=== PATIENT | male | born 1960 | race Caucasian/White ===

== ENCOUNTER 2021-10-29 12:50 | Emergency (ER) | payer BC, MEDICAID, OTHER ==
[~2021-10-29] VITALS: Ht 170.2 cm; Wt 86.4 kg
[2021-10-29 13:16] LABS: BASOPHILS # (AUTO) 0.1 X10'3 (0-0.2); BASOPHILS % (AUTO) 0.7 % (0-1); EOSINOPHILS # (AUTO) 0.1 X10'3 (0-0.9); EOSINOPHILS % (AUTO) 0.8 % (0-6); HEMATOCRIT 43.4 % (42.0-52.0); HEMOGLOBIN 14.8 g/dl (14.0-17.9); LYMPHOCYTES # (AUTO) 4.2 X10'3 (1.1-4.8); LYMPHOCYTES % (AUTO) 38.4 % (21-51); MEAN CORPUSCULAR HEMOGLOBIN 32.4 PG (27.0-31.0); MEAN CORPUSCULAR VOLUME 95.2 FL (78-98); MEAN PLATELET VOLUME 7.7 FL (7.4-10.4); MONOCYTES % (AUTO) 9.2 % (2-12); NEUTROPHILS # (AUTO) 5.5 X10'3 (1.8-7.7); NEUTROPHILS % (AUTO) 50.9 % (42-75); PLATELET COUNT 290 X10'3 (140-440); RED BLOOD COUNT 4.56 X10'6 (4.70-6.10); RED CELL DISTRIBUTION WIDTH 13.5 % (11.5-14.5); WHITE BLOOD COUNT 10.8 X10'3 (4.5-11.0)
[2021-10-29 13:30] LABS: ALANINE AMINOTRANSFERASE 55 U/L (12-78); ALKALINE PHOSPHATASE 92 IU/L (46-116); ANION GAP 11 (8-16); ASPARTATE AMINO TRANSFERASE 53 U/L (10-37); BILIRUBIN,TOTAL 0.6 MG/DL (0.1-1.0); BLOOD UREA NITROGEN 13 MG/DL (7-18); BUN/CREATININE RATIO 15.9 (5.4-32.0); CALCIUM 9.8 MG/DL (8.5-10.1); CHLORIDE 104 MMOL/L (99-107); CREATININE 0.82 MG/DL (0.60-1.10); GLUCOSE 126 MG/DL (70-104); LIPASE 212 U/L (73-393); POTASSIUM 3.5 MMOL/L (3.5-5.1); SODIUM 140 MMOL/L (135-145); TOTAL CARBON DIOXIDE 24.6 MMOL/L (24-32); eGFR > 90 ML/MIN
[2021-10-29 15:43] LABS: CLARITY,URINE SLIGHTLY CLOUDY (Clear); COLOR,URINE YELLOW (Yellow); GLUCOSE, URINE NEGATIVE (Neg); KETONES,URINE NEGATIVE (Neg); LEUKOCYTE ESTERASE ,URINE NEGATIVE (Neg); NITRITES, URINE NEGATIVE (Neg); OCCULT BLOOD,URINE NEGATIVE (Neg); PH,URINE 7.5 (4.8-8.0); PROTEIN,URINE NEGATIVE (Neg); UA COLLECTION TYPE CLN CATCH MIDSTREAM; UROBILINOGEN,URINE 0.2 E.U/dL (0.2-1.0)
[2021-10-29 15:48] LABS: AMORPHOUS URATES 3+; BACTERIA,URINE FEW /HPF (Neg); RBC,URINE NONE SEEN /HPF (0-2); SQUAMOUS EPITHELIAL CELL,UR NONE SEEN /LPF (FEW); WBC,URINE NONE SEEN /HPF (0-4)
--- NOTE | 2021-10-29 16:25 | NUR ---
Pt's blood pressure elevated at 188/106, RICARDO Ga made aware.
[2021-10-29 16:29] VITALS: BP 188/106
== END 2021-10-29 16:31 | disposition home or self-care (01) ==
LOC: ER 12:51
DX: F41.9 Anxiety disorder, unspecified (principal); R42 Dizziness and giddiness; R68.83 Chills (without fever); Z90.89 Acquired absence of other organs; Z98.890 Other specified postprocedural states; Z72.89 Other problems related to lifestyle
CPT/HCPCS: 36415; 80053; 81001; 83690; 85025; 99283

== ENCOUNTER 2021-11-22 13:37 | Inpatient (IN) | payer BC ==
[~2021-11-22] VITALS: Ht 170.2 cm; Wt 88.6 kg
[2021-11-22 14:13] LABS: CLARITY,URINE CLEAR (Clear); COLOR,URINE YELLOW (Yellow); GLUCOSE, URINE NEGATIVE (Neg); KETONES,URINE 15 mg/dl (Neg); LEUKOCYTE ESTERASE ,URINE NEGATIVE (Neg); NITRITES, URINE NEGATIVE (Neg); OCCULT BLOOD,URINE NEGATIVE (Neg); PROTEIN,URINE NEGATIVE (Neg); UROBILINOGEN,URINE 0.2 E.U/dL (0.2-1.0)
[2021-11-22 14:14] LABS: UA COLLECTION TYPE VOIDED
[2021-11-22 14:38] LABS: BASOPHILS % (AUTO) 0.5 % (0-1); EOSINOPHILS # (AUTO) 0.2 X10'3 (0-0.9); EOSINOPHILS % (AUTO) 2.2 % (0-6); HEMATOCRIT 44.5 % (42.0-52.0); HEMOGLOBIN 15.7 g/dl (14.0-17.9); LYMPHOCYTES # (AUTO) 3.6 X10'3 (1.1-4.8); MEAN CORPUSCULAR HEMOGLOBIN 33.9 PG (27.0-31.0); MEAN CORPUSCULAR HGB CONC 35.2 g/dL (33.0-36.5); MEAN CORPUSCULAR VOLUME 96.3 FL (78-98); MEAN PLATELET VOLUME 8.1 FL (7.4-10.4); MONOCYTES # (AUTO) 0.9 X10'3 (0-0.9); MONOCYTES % (AUTO) 8.8 % (2-12); NEUTROPHILS # (AUTO) 5.5 X10'3 (1.8-7.7); NEUTROPHILS % (AUTO) 53.5 % (42-75); PLATELET COUNT 292 X10'3 (140-440); RED BLOOD COUNT 4.62 X10'6 (4.70-6.10); RED CELL DISTRIBUTION WIDTH 13.2 % (11.5-14.5); WHITE BLOOD COUNT 10.2 X10'3 (4.5-11.0)
[2021-11-22 14:52] LABS: ALANINE AMINOTRANSFERASE 35 U/L (12-78); ALBUMIN 4.1 G/DL (3.4-5.0); ALBUMIN/GLOBULIN RATIO 1.1 (1.1-1.5); ALKALINE PHOSPHATASE 83 IU/L (46-116); ANION GAP 8 (8-16); ASPARTATE AMINO TRANSFERASE 30 U/L (10-37); BILIRUBIN,TOTAL 0.5 MG/DL (0.1-1.0); BLOOD UREA NITROGEN 18 MG/DL (7-18); BUN/CREATININE RATIO 23.7 (5.4-32.0); CALCIUM 9.1 MG/DL (8.5-10.1); CHLORIDE 101 MMOL/L (99-107); CREATININE 0.76 MG/DL (0.60-1.10); GLUCOSE 124 MG/DL (70-104); POTASSIUM 3.8 MMOL/L (3.5-5.1); SODIUM 136 MMOL/L (135-145); eGFR > 90 ML/MIN
[2021-11-22 15:00] LABS: LIPASE 206 U/L (73-393)
[2021-11-22] MEDS ORDERED: aspirin 81mg tab.chew PO ONE (17:00)
[2021-11-22] MEDS ORDERED: hydrALAZINE 20mg/ml inj. IV ONE (17:00)
[2021-11-22] MEDS ORDERED: LORazepam 2 mg/ml vial IV ONE (17:20)
[2021-11-22] MEDS ORDERED: magnesium 2GM in 50ml NS 50 ML IV PRN (18:10)
[2021-11-22] MEDS ORDERED: aminophylline 250mg/10ml inj. IV PRN (18:10)
[2021-11-22] MEDS ORDERED: nitroGLYCERIN 0.4mg SUBLingual tab SL PRN (18:10)
[2021-11-22] MEDS ORDERED: potassium CL 10mEq/100ml bag 100 ML IV PRN (18:10)
[2021-11-22] MEDS ORDERED: POTASSIUM BICARB 20meq eff tab 20 MEQ TABLET.EFF PO PRN ×2 (18:10)
[2021-11-22] MEDS ORDERED: regadenoson 0.4mg/5ml syringe IV PRN (18:10)
[2021-11-22] MEDS ORDERED: acetaminophen 325mg tablet PO PRN ×2 (18:10)
[2021-11-22] MEDS ORDERED: ondansetron/PF 4mg/2ml inj IV PRN (18:10)
[2021-11-22] MEDS ORDERED: metoprolol tartrate 1mg/ml inj IV PRN (18:10)
[2021-11-22] MEDS ORDERED: magnesium Cl slow-release 64mg tablet PO PRN (18:10)
[2021-11-22] MEDS ORDERED: magnesium 4gm in 100ml NS 100 ML IV PRN (18:10)
[2021-11-22] MEDS ORDERED: LORazepam 1 MG tablet PO PRN (18:15)
[2021-11-22] MEDS ORDERED: LORazepam 2 mg/ml vial IV PRN (18:15)
[2021-11-22] MEDS ORDERED: ROSU10TA2 PO (19:50)
[2021-11-22] MEDS ORDERED: PROP60CA37 PO (19:50)
[2021-11-22] MEDS: amLODIPine 5mg tablet PO SCH (19:53)
[2021-11-22] MEDS: heparin, porcine 5000 units/ml vial SQ SCH (19:54)
[2021-11-22] MEDS: lisinopril 10 MG tablet PO SCH (19:54)
[2021-11-22] MEDS: normal saline 1000ml 1,000 ML IV SCH (19:58)
[2021-11-22] MEDS: K and/or MAG REPLACEMENT MC SCH (20:00)
[2021-11-22] MEDS ORDERED: temazepam 15mg capsule PO PRN (21:00)
[2021-11-22 21:13] VITALS: BP 162/85
[2021-11-22 22:00] VITALS: BP 128/71
[2021-11-23] VITALS (10 sets, daily range): BP systolic 123–158; BP diastolic 56–92
[2021-11-23 06:19] LABS: BASOPHILS # (AUTO) 0.1 X10'3 (0-0.2); BASOPHILS % (AUTO) 0.5 % (0-1); EOSINOPHILS # (AUTO) 0.2 X10'3 (0-0.9); EOSINOPHILS % (AUTO) 2.1 % (0-6); HEMATOCRIT 42.2 % (42.0-52.0); HEMOGLOBIN 14.8 g/dl (14.0-17.9); LYMPHOCYTES % (AUTO) 28.9 % (21-51); MEAN CORPUSCULAR HEMOGLOBIN 33.7 PG (27.0-31.0); MEAN CORPUSCULAR HGB CONC 35.2 g/dL (33.0-36.5); MEAN CORPUSCULAR VOLUME 95.6 FL (78-98); MONOCYTES # (AUTO) 1.1 X10'3 (0-0.9); MONOCYTES % (AUTO) 10.7 % (2-12); NEUTROPHILS % (AUTO) 57.8 % (42-75); PLATELET COUNT 256 X10'3 (140-440); RED BLOOD COUNT 4.41 X10'6 (4.70-6.10); RED CELL DISTRIBUTION WIDTH 13.2 % (11.5-14.5); WHITE BLOOD COUNT 10.3 X10'3 (4.5-11.0)
[2021-11-23 06:45] LABS: ALANINE AMINOTRANSFERASE 30 U/L (12-78); ALBUMIN 3.4 G/DL (3.4-5.0); ALBUMIN/GLOBULIN RATIO 0.9 (1.1-1.5); ALKALINE PHOSPHATASE 60 IU/L (46-116); ANION GAP 8 (8-16); ASPARTATE AMINO TRANSFERASE 25 U/L (10-37); BILIRUBIN,TOTAL 0.7 MG/DL (0.1-1.0); BLOOD UREA NITROGEN 15 MG/DL (7-18); BUN/CREATININE RATIO 22.4 (5.4-32.0); CALCIUM 8.9 MG/DL (8.5-10.1); CHLORIDE 107 MMOL/L (99-107); CHOL/HDL RATIO 3.7 (0.00-4.99); CHOLESTEROL 170 MG/DL (0-200); CREATININE 0.67 MG/DL (0.60-1.10); GLUCOSE 101 MG/DL (70-104); HDL CHOLESTEROL 46 MG/DL (35-60); LDL CHOLESTEROL 95 MG/DL (50-100); POTASSIUM 3.9 MMOL/L (3.5-5.1); SODIUM 140 MMOL/L (135-145); TOTAL CARBON DIOXIDE 24.9 MMOL/L (24-32); TRIGLYCERIDES 217 MG/DL (20-135); eGFR > 90 ML/MIN
[2021-11-23] MEDS: heparin, porcine 5000 units/ml vial SQ SCH (07:18)
[2021-11-23] MEDS: K and/or MAG REPLACEMENT MC SCH (08:00)
--- NOTE | 2021-11-23 08:25 | NUR ---
[employer] per their request.
--- NOTE | 2021-11-23 10:34 | NUR ---
PAGER ID: [phone] MESSAGE: [phone]. Levon Pugh. Pt req Shon for sciatica pain. Nancy Pulido [phone]
[2021-11-23] MEDS ORDERED: HYDROcodone/acetaminophen 5mg/325mg tablet PO ONE (10:55)
[2021-11-23] MEDS: lisinopril 10 MG tablet PO SCH (11:58)
[2021-11-23] MEDS: amLODIPine 5mg tablet PO SCH (11:58)
[2021-11-23] MEDS: normal saline 1000ml 1,000 ML IV SCH (14:10)
--- NOTE | 2021-11-23 14:30 | NUR ---
PT is back in his room. He is having his bring TACO CELAYA. Educated on heart healthy diet - pt verbalized understanding and still wants to eat taco celaya.
--- NOTE | 2021-11-23 17:12 | NUR ---
Paged Dr Hernandez PAGER ID: [phone] MESSAGE: [phone].Levon Pugh. [facility] results are in.Nancy Pulido [phone]
[2021-11-23] MEDS ORDERED: LISI10TA27 PO (17:24)
[2021-11-23] MEDS ORDERED: NOR5T PO (17:24)
--- NOTE | 2021-11-23 17:55 | NUR ---
pt stable for d/c per md order reviewed all d/c ppwk with patient and patient . PIV was removed from right forearm. Pt tolerated well and verbalized understanding. Tele monitor was removed and given to telephone clerk monitor. All personal belongings were sent with patient. New RX was called into [facility] on [facility] per patient request. Education re: stopping smoking, etoh, changing diet to heart healthy. Pt verbalized understanding. Pt wanted to walk out. Private vehicle in parking lot. and patient walked out together.
[2021-11-23] MEDS ORDERED: propranolol LA 60 MG cap.SA.24H PO SCH (21:00)
[2021-11-24] MEDS ORDERED: atorvastatin 20mg tablet PO SCH (08:00)
== END 2021-11-23 17:56 | disposition home or self-care (01) | DRG 305 ==
LOC: ER 13:38 → ED HOLD 18:10 → PCU 3S 20:40
PROVIDERS: ADMIT Internal Medicine; ATTEND Internal Medicine
PROC: 4A02XM4 Measurement of Cardiac Total Activity, External Approach (ICD-10-PCS; principal; 2021-11-23)
PROC: 3E033HZ Introduction of Radioactive Substance into Peripheral Vein, Percutaneous Approach (ICD-10-PCS; 2021-11-23)
DX: I16.0 Hypertensive urgency (principal); E78.00 Pure hypercholesterolemia, unspecified; E78.5 Hyperlipidemia, unspecified; F12.90 Cannabis use, unspecified, uncomplicated; F17.210 Nicotine dependence, cigarettes, uncomplicated; F41.0 Panic disorder [episodic paroxysmal anxiety]; F41.1 Generalized anxiety disorder; I10 Essential (primary) hypertension; Z90.49 Acquired absence of other specified parts of digestive tract; Z79.899 Other long term (current) drug therapy; Z71.6 Tobacco abuse counseling; Z72.89 Other problems related to lifestyle; Z71.41 Alcohol abuse counseling and surveillance of alcoholic
CPT/HCPCS: 36415; 71045; 78452; 80053; 80061; 81003; 83690; 83880; 84484; 85025; 87081; 93017; 93306; 96374; 97161; 97530; 99285; A9500; G0378; J0360; J1644; J2060; J2785; J7030

== ENCOUNTER 2022-02-25 09:43 | Emergency (ER) | payer BC ==
[~2022-02-25] VITALS: Ht 170.2 cm; Wt 190.0 kg
[~2022-02-25 09:43] MED LIST: LISI10TA27 PO; NOR5T PO; PROP60CA37 PO; ROSU10TA2 PO
[2022-02-25 10:12] LABS: BASOPHILS # (AUTO) 0.1 X10'3 (0-0.2); BASOPHILS % (AUTO) 0.6 % (0-1); EOSINOPHILS # (AUTO) 0.2 X10'3 (0-0.9); EOSINOPHILS % (AUTO) 1.9 % (0-6); HEMATOCRIT 44.4 % (42.0-52.0); HEMOGLOBIN 15.3 g/dl (14.0-17.9); LYMPHOCYTES # (AUTO) 3.6 X10'3 (1.1-4.8); LYMPHOCYTES % (AUTO) 32.7 % (21-51); MEAN CORPUSCULAR HEMOGLOBIN 33.4 PG (27.0-31.0); MEAN CORPUSCULAR HGB CONC 34.5 g/dL (33.0-36.5); MEAN CORPUSCULAR VOLUME 96.6 FL (78-98); MEAN PLATELET VOLUME 8.3 FL (7.4-10.4); MONOCYTES # (AUTO) 1.2 X10'3 (0-0.9); MONOCYTES % (AUTO) 10.8 % (2-12); PLATELET COUNT 257 X10'3 (140-440); RED CELL DISTRIBUTION WIDTH 14.1 % (11.5-14.5); WHITE BLOOD COUNT 11.1 X10'3 (4.5-11.0)
[2022-02-25 10:27] LABS: ALANINE AMINOTRANSFERASE 37 U/L (12-78); ALBUMIN 4.3 G/DL (3.4-5.0); ALBUMIN/GLOBULIN RATIO 1.1 (1.1-1.5); ALKALINE PHOSPHATASE 78 IU/L (46-116); ANION GAP 13 (8-16); ASPARTATE AMINO TRANSFERASE 34 U/L (10-37); BILIRUBIN,TOTAL 0.6 MG/DL (0.1-1.0); BLOOD UREA NITROGEN 17 MG/DL (7-18); BUN/CREATININE RATIO 20.2 (5.4-32.0); CALCIUM 9.8 MG/DL (8.5-10.1); CHLORIDE 101 MMOL/L (99-107); CREATININE 0.84 MG/DL (0.60-1.10); GLUCOSE 214 MG/DL (70-104); POTASSIUM 4.2 MMOL/L (3.5-5.1); SODIUM 138 MMOL/L (135-145); TOTAL PROTEIN 8.3 G/DL (6.4-8.2); eGFR > 90 ML/MIN
--- NOTE | 2022-02-25 11:46 | NUR ---
PT STATES THEY HAVE HAD " 3 SHOTS" OF THE COVID VACCINE.
[2022-02-25 13:47] VITALS: BP 150/105
[2022-02-25] MEDS ORDERED: METO25TA6 PO (15:10)
== END 2022-02-25 15:25 | disposition home or self-care (01) ==
LOC: ER 09:45
DX: I48.91 Unspecified atrial fibrillation (principal); R42 Dizziness and giddiness; F41.9 Anxiety disorder, unspecified; I10 Essential (primary) hypertension; R53.1 Weakness
CPT/HCPCS: 36415; 71045; 80053; 83880; 84484; 85025; 93005; 99285

== ENCOUNTER 2024-03-19 08:04 | Inpatient (IN) | payer BC ==
[~2024-03-19] VITALS: Ht 170.2 cm; Wt 90.9 kg
[~2024-03-19 08:04] MED LIST changes: +METO25TA6 PO
[2024-03-19] MEDS: amiodarone/D5 360MG/200ML BAG 200 ML IV SCH (08:30)
[2024-03-19] MEDS: magnesium sulf-water 2g/50mL 50 ML IV ONE ×2 (08:51)
[2024-03-19 08:52] LABS: BASOPHILS # (AUTO) 0.1 X10'3 (0-0.2); LYMPHOCYTES # (AUTO) 9.2 X10'3 (1.1-4.8); PLATELET COUNT 278 X10'3 (140-440)
[2024-03-19 08:54] LABS: BASOPHILS % (AUTO) 0.5 % (0-1); EOSINOPHILS # (AUTO) 0.2 X10'3 (0-0.9); EOSINOPHILS % (AUTO) 1.4 % (0-6); HEMATOCRIT 49.4 % (42.0-52.0); HEMOGLOBIN 16.6 g/dl (14.0-17.9); LYMPHOCYTES % (AUTO) 57.8 % (21-51); MEAN CORPUSCULAR HGB CONC 33.5 g/dL (33.0-36.5); MEAN CORPUSCULAR VOLUME 101.3 FL (78-98); MEAN PLATELET VOLUME 8.3 FL (7.4-10.4); MONOCYTES # (AUTO) 1.4 X10'3 (0-0.9); MONOCYTES % (AUTO) 8.7 % (2-12); NEUTROPHILS # (AUTO) 5.1 X10'3 (1.8-7.7); NEUTROPHILS % (AUTO) 31.6 % (42-75); RED BLOOD COUNT 4.87 X10'6 (4.70-6.10); RED CELL DISTRIBUTION WIDTH 13.9 % (11.5-14.5)
[2024-03-19 08:56] LABS: ABG BASE EXCESS -14.1 mmol/L (-2.0-3.0); ABG HCO3 10.3 mmol/L (21.0-28.0); ABG OXYGEN SATURATION 97.1 % (94.0-98.0); ABG PCO2 (T) 22.7 mmHg (35.0-48.0); ABG PH (T) 7.274 (7.350-7.450); ABG PO2 (T) 113.5 mmHg (83.0-108.0); ALLEN'S TEST POSITIVE; FCOHb 1.1 % (0.5-1.5); FHHb 2.9 % (0.0-5.0); FMetHb 0.1 % (0.0-1.5); FO2Hb 95.9 % (94.0-98.0); MODE ROOM AIR; PATIENT TEMPERATURE 36.9; TOTAL HEMOGLOBIN 17.1 G/dl (13.5-17.5)
[2024-03-19] MEDS ORDERED: amiodarone 50MG/ML inj IV ONE (09:00)
[2024-03-19] MEDS: aspirin 81mg tab.chew PO ONE (09:10)
[2024-03-19 09:13] LABS: ALANINE AMINOTRANSFERASE 61 U/L (12-78); ALBUMIN 3.9 G/DL (3.4-5.0); ALKALINE PHOSPHATASE 86 IU/L (46-116); ANION GAP 23 (8-16); ASPARTATE AMINO TRANSFERASE 50 U/L (10-37); BILIRUBIN,TOTAL 0.5 MG/DL (0.1-1.0); BLOOD UREA NITROGEN 14 MG/DL (7-18); CALCIUM 9.3 MG/DL (8.5-10.1); CHLORIDE 103 MMOL/L (99-107); GLUCOSE 192 MG/DL (70-104); POTASSIUM 3.5 MMOL/L (3.5-5.1); PRO BRAIN NATRIURETIC PEPTIDE 255 PG/ML (0-125); SODIUM 140 MMOL/L (135-145); TOTAL PROTEIN 7.9 G/DL (6.4-8.2); eCRCL 72 ML/MIN; eGFR 76 ML/MIN
[2024-03-19 09:21] LABS: TOTAL CARBON DIOXIDE 14.2 MMOL/L (24-32)
[2024-03-19 10:11] LABS: TOTAL CELLS COUNTED 100
[2024-03-19 10:12] LABS: PLATELET ESTIMATE NORMAL
[2024-03-19] MEDS ORDERED: ondansetron/PF 4mg/2ml inj IV PRN (10:35)
[2024-03-19] MEDS ORDERED: magnesium Cl slow-release 64mg tablet PO PRN (10:35)
[2024-03-19] MEDS ORDERED: potassium Cl 40MEQ/1/2NS 520ml 520 ML IV PRN (10:35)
[2024-03-19] MEDS ORDERED: mag hydrox/Alum hydrox/simeth 30ml oral suspension PO PRN (10:35)
[2024-03-19] MEDS ORDERED: potassium Cl 20 mEq SR tablet PO PRN ×2 (10:35)
[2024-03-19] MEDS ORDERED: morphine 2 MG/ML inj. syringe IV PRN (10:35)
[2024-03-19] MEDS ORDERED: magnesium sulf-water 2g/50mL 50 ML IV PRN (10:35)
[2024-03-19] MEDS ORDERED: magnesium sulf-water 4G/100mL 100 ML IV PRN (10:35)
[2024-03-19 10:37] LABS: MAGNESIUM 2.6 MG/DL (1.5-2.4); THYROID STIMULATING HORMONE 1.01 ulU/ml (0.34-4.50)
[2024-03-19] MEDS ORDERED: iohexol 350MG/ML 100ml bottle IV ONE (11:05)
[2024-03-19 11:18] LABS: APTT 25 SECONDS (22-32); PROTHROMBIN TIME 10.9 SECONDS (9.0-12.0)
[2024-03-19 11:27] LABS: HEMOGLOBIN A1C 5.6 % (4.5-6.2)
[2024-03-19] MEDS: HEPARIN DRIP-CARDIAC**PHARMACIST-TO-DOSE IV ONE (11:55)
[2024-03-19] MEDS ORDERED: MESSAGE TO NURSING IV ONE (12:05)
[2024-03-19] MEDS: heparin 10,000 units/1 ML INJ IV ONE (12:16)
[2024-03-19] MEDS: heparin 25,000 UNIT/250ml bag 250 ML IV PRN (12:18)
[2024-03-19 12:25] LABS: HEMOGLOBIN 15.7 g/dl (14.0-17.9); MEAN CORPUSCULAR VOLUME 98.1 FL (78-98); MEAN PLATELET VOLUME 7.8 FL (7.4-10.4); MONOCYTES # (AUTO) 1.3 X10'3 (0-0.9); MONOCYTES % (AUTO) 8.5 % (2-12)
[2024-03-19 12:28] LABS: BASOPHILS % (AUTO) 0.3 % (0-1); EOSINOPHILS % (AUTO) 0.3 % (0-6); HEMATOCRIT 45.5 % (42.0-52.0); LYMPHOCYTES # (AUTO) 1.5 X10'3 (1.1-4.8); LYMPHOCYTES % (AUTO) 10.3 % (21-51); MEAN CORPUSCULAR HEMOGLOBIN 33.8 PG (27.0-31.0); MEAN CORPUSCULAR HGB CONC 34.4 g/dL (33.0-36.5); NEUTROPHILS # (AUTO) 12.1 X10'3 (1.8-7.7); NEUTROPHILS % (AUTO) 80.6 % (42-75); PLATELET COUNT 246 X10'3 (140-440); RED BLOOD COUNT 4.64 X10'6 (4.70-6.10); RED CELL DISTRIBUTION WIDTH 13.4 % (11.5-14.5)
[2024-03-19] MEDS ORDERED: ROSU20TA73 PO (12:59)
[2024-03-19] MEDS ORDERED: LISI20TA28 PO (12:59)
[2024-03-19] MEDS ORDERED: AMLO10TA13 PO (12:59)
[2024-03-19] MEDS: MESSAGE TO NURSING IV ONE (13:02)
[2024-03-19 13:24] LABS: ALBUMIN 3.8 G/DL (3.4-5.0); ANION GAP 9 (8-16); BLOOD UREA NITROGEN 17 MG/DL (7-18); BUN/CREATININE RATIO 21.8 (10.0-20.0); CALCIUM 8.7 MG/DL (8.5-10.1); CHLORIDE 105 MMOL/L (99-107); CREATININE 0.78 MG/DL (0.60-1.10); GLUCOSE 99 MG/DL (70-104); POTASSIUM 3.8 MMOL/L (3.5-5.1); SODIUM 139 MMOL/L (135-145); TOTAL CARBON DIOXIDE 25.5 MMOL/L (24-32); eCRCL 92 ML/MIN; eGFR > 90 ML/MIN
[2024-03-19] MEDS: metoprolol tartrate 50mg tablet PO SCH (13:32)
[2024-03-19] MEDS: morphine 2 MG/ML inj. syringe IV PRN (13:34)
[2024-03-19 13:36] LABS: ABG BASE EXCESS -1.2 mmol/L (-2.0-3.0); ABG HCO3 21.4 mmol/L (21.0-28.0); ABG OXYGEN SATURATION 89.6 % (94.0-98.0); ABG PCO2 (T) 30.8 mmHg (35.0-48.0); ABG PO2 (T) 56.9 mmHg (83.0-108.0); ALLEN'S TEST POSITIVE; FCOHb 0.6 % (0.5-1.5); FHHb 10.3 % (0.0-5.0); FMetHb 0.1 % (0.0-1.5); MODE ROOM AIR; TOTAL HEMOGLOBIN 15.7 G/dl (13.5-17.5)
[2024-03-19] MEDS: atorvastatin 20mg tablet PO SCH (13:40)
[2024-03-19] MEDS ORDERED: LORazepam 1 MG tablet PO PRN (15:10)
[2024-03-19 15:30] VITALS: BP 117/81; PULSE 72; RESP 20; TEMP 97.8; O2SAT 91
[2024-03-19 15:50] LABS: CHOL/HDL RATIO 2.8 (0.00-4.99); CHOLESTEROL 176 MG/DL (0-200); HDL CHOLESTEROL 64 MG/DL (35-60); LDL CHOLESTEROL 98 MG/DL (50-100); TRIGLYCERIDES 116 MG/DL (20-135)
[2024-03-19 17:00] VITALS: RESP 20; O2SAT 91
[2024-03-19 17:30] VITALS: BP 124/65; PULSE 62; RESP 20; TEMP 97.6; O2SAT 90
[2024-03-19 18:00] VITALS: BP 133/84; PULSE 62; RESP 19; TEMP 97.3; O2SAT 91
[2024-03-19] MEDS: acetaminophen 325mg tablet PO PRN (19:40)
[2024-03-19] MEDS: folic acid 1mg/0.2ml inj IV SCH (19:40)
[2024-03-19 20:00] VITALS: RESP 20; O2SAT 91
[2024-03-19] MEDS: K and/or MAG REPLACEMENT MC SCH (20:00)
[2024-03-19 22:00] VITALS: BP 105/62; PULSE 58; RESP 20; TEMP 97.2; O2SAT 92
[2024-03-19] MEDS: heparin 10,000 units/1 ML INJ IV PRN (22:26)
[2024-03-20] VITALS (17 sets, daily range): BP systolic 114–138; BP diastolic 65–84; PULSE 54–110; RESP 13–28; TEMP 97.3–99; O2SAT 90–97
[2024-03-20] MEDS: MESSAGE TO NURSING IV ONE ×2 (00:29→06:30)
[2024-03-20 05:41] LABS: HEMOGLOBIN 14.1 g/dl (14.0-17.9); RED CELL DISTRIBUTION WIDTH 13.4 % (11.5-14.5)
[2024-03-20 05:42] LABS: BASOPHILS % (AUTO) 0.2 % (0-1); EOSINOPHILS # (AUTO) 0.1 X10'3 (0-0.9); EOSINOPHILS % (AUTO) 0.7 % (0-6); HEMATOCRIT 42.1 % (42.0-52.0); LYMPHOCYTES # (AUTO) 2.7 X10'3 (1.1-4.8); LYMPHOCYTES % (AUTO) 19.8 % (21-51); MEAN CORPUSCULAR HEMOGLOBIN 33.4 PG (27.0-31.0); MEAN CORPUSCULAR HGB CONC 33.6 g/dL (33.0-36.5); MEAN CORPUSCULAR VOLUME 99.3 FL (78-98); MEAN PLATELET VOLUME 8.8 FL (7.4-10.4); MONOCYTES # (AUTO) 1.4 X10'3 (0-0.9); MONOCYTES % (AUTO) 10.2 % (2-12); NEUTROPHILS # (AUTO) 9.4 X10'3 (1.8-7.7); NEUTROPHILS % (AUTO) 69.1 % (42-75); PLATELET COUNT 243 X10'3 (140-440); RED BLOOD COUNT 4.24 X10'6 (4.70-6.10); WHITE BLOOD COUNT 13.6 X10'3 (4.5-11.0)
[2024-03-20 05:43] LABS: BILIRUBIN,URINE NEGATIVE (Neg); CLARITY,URINE CLEAR (Clear); COLOR,URINE YELLOW (Yellow); GLUCOSE, URINE NEGATIVE (Neg); KETONES,URINE NEGATIVE (Neg); LEUKOCYTE ESTERASE ,URINE NEGATIVE (Neg); NITRITES, URINE NEGATIVE (Neg); OCCULT BLOOD,URINE NEGATIVE (Neg); PROTEIN,URINE 30 mg/dl (Neg); UROBILINOGEN,URINE 0.2 E.U/dL (0.2-1.0)
[2024-03-20 05:50] LABS: UA COLLECTION TYPE NON-SPECIFIED
[2024-03-20 05:52] LABS: ALANINE AMINOTRANSFERASE 55 U/L (12-78); ALBUMIN 3.4 G/DL (3.4-5.0); ALKALINE PHOSPHATASE 55 IU/L (46-116); AMYLASE 46 U/L (25-115); ANION GAP 7 (8-16); ASPARTATE AMINO TRANSFERASE 77 U/L (10-37); BILIRUBIN,TOTAL 0.9 MG/DL (0.1-1.0); BLOOD UREA NITROGEN 17 MG/DL (7-18); BUN/CREATININE RATIO 21.3 (10.0-20.0); CALCIUM 8.4 MG/DL (8.5-10.1); CHLORIDE 102 MMOL/L (99-107); GLUCOSE 102 MG/DL (70-104); LIPASE 38 U/L (16-77); MAGNESIUM 2.1 MG/DL (1.5-2.4); POTASSIUM 3.8 MMOL/L (3.5-5.1); SODIUM 136 MMOL/L (135-145); TOTAL CARBON DIOXIDE 27.4 MMOL/L (24-32); TOTAL PROTEIN 6.9 G/DL (6.4-8.2); eCRCL 90 ML/MIN; eGFR > 90 ML/MIN
[2024-03-20 06:02] LABS: BACTERIA,URINE FEW /HPF (Neg); MUCUS STRANDS FEW /LPF (Neg); RBC,URINE 0-2 /HPF (0-2); SQUAMOUS EPITHELIAL CELL,UR FEW /LPF (FEW); WBC,URINE 0-4 /HPF (0-4)
[2024-03-20 06:04] LABS: URINE AMPHETAMINE SCREEN NEGATIVE (Neg); URINE BARBITUATE SCREEN NEGATIVE (Neg); URINE BENZODIAZEPINES SCREEN NEGATIVE (Neg); URINE CANNABINOID SCREEN POSITIVE (Neg); URINE COCAINE SCREEN NEGATIVE (Neg); URINE METHADONE SCREEN NEGATIVE (Neg); URINE OPIATE SCREEN POSITIVE (Neg); URINE PHENCYCLIDINE SCREEN NEGATIVE (Neg)
[2024-03-20 06:16] LABS: PLATELET ESTIMATE NORMAL
[2024-03-20] MEDS ORDERED: LIDOcaine 1% (10mg/ml) 2ml vial ONE (08:16)
[2024-03-20] MEDS ORDERED: verapamil 2.5 mg/ml inj IV ONE (08:17)
[2024-03-20] MEDS ORDERED: fentaNYL/PF 50MCG/1 ML 2ML syringe ONE (08:17)
[2024-03-20] MEDS ORDERED: heparin 1,000unit/ml 10ml vial 10 ML ONE ×2 (08:17→09:12)
[2024-03-20] MEDS ORDERED: midazolam 1 mg/ML 2ml injection ONE (08:17)
[2024-03-20] MEDS ORDERED: iohexol 350MG/ML 100ml bottle IV ONE ×2 (08:17→09:12)
[2024-03-20] MEDS ORDERED: nitroGLYCERIN 500mcg/5mL D5W 5 ML IV ONE (08:20)
[2024-03-20] MEDS ORDERED: iohexol 350 MG/ML 50ML vial IV ONE (09:30)
[2024-03-20] MEDS ORDERED: ticagrelor 90mg tablet ONE (09:31)
[2024-03-20] MEDS ORDERED: LORazepam 2 mg/ml vial IV PRN (11:05)
[2024-03-20] MEDS: LORazepam 1 MG tablet PO PRN (11:09)
[2024-03-20] MEDS: magnesium hydroxide 30ml (MOM) UD suspension PO PRN (11:12)
[2024-03-20] MEDS ORDERED: ondansetron/PF 4mg/2ml inj IV PRN (11:50)
[2024-03-20] MEDS ORDERED: nitroGLYCERIN 0.4mg SUBLingual tab SL PRN (11:50)
[2024-03-20] MEDS ORDERED: proCHLORperazine 10 MG/2 ml inj IV PRN (11:50)
[2024-03-20] MEDS ORDERED: HYDROcodone/acetaminophen 10/325mg tab PO PRN (11:50)
[2024-03-20] MEDS ORDERED: HYDROcodone/acetaminophen 5mg/325mg tablet PO PRN (11:50)
[2024-03-20] MEDS ORDERED: OXAZEpam 15mg capsule PO PRN (11:50)
[2024-03-20] MEDS: ticagrelor 90mg tablet PO SCH (20:00)
[2024-03-20] MEDS: atorvastatin 20mg tablet PO SCH (21:44)
[2024-03-21 02:00] VITALS: BP 108/78; PULSE 61; RESP 28; TEMP 98.7; O2SAT 97
[2024-03-21] MEDS: haloperidol 5mg tablet PO PRN (05:08)
[2024-03-21] MEDS: amLODIPine 5mg tablet PO SCH (08:00)
[2024-03-21] MEDS: apixaban 5mg tablet PO SCH (08:00)
[2024-03-21] MEDS: lisinopril 20mg tablet PO SCH (08:00)
[2024-03-21] MEDS: aspirin 81mg, enteric-coated 1 TAB TABLET.DR PO SCH (08:00)
[2024-03-21 09:23] LABS: BASOPHILS % (AUTO) 0.3 % (0-1); EOSINOPHILS # (AUTO) 0.2 X10'3 (0-0.9); EOSINOPHILS % (AUTO) 1.7 % (0-6); HEMATOCRIT 40.1 % (42.0-52.0); HEMOGLOBIN 13.8 g/dl (14.0-17.9); LYMPHOCYTES # (AUTO) 2.2 X10'3 (1.1-4.8); LYMPHOCYTES % (AUTO) 20.6 % (21-51); MEAN CORPUSCULAR HEMOGLOBIN 34.2 PG (27.0-31.0); MEAN CORPUSCULAR HGB CONC 34.3 g/dL (33.0-36.5); MEAN CORPUSCULAR VOLUME 99.5 FL (78-98); MEAN PLATELET VOLUME 8.6 FL (7.4-10.4); MONOCYTES # (AUTO) 1.2 X10'3 (0-0.9); MONOCYTES % (AUTO) 10.7 % (2-12); NEUTROPHILS # (AUTO) 7.2 X10'3 (1.8-7.7); NEUTROPHILS % (AUTO) 66.7 % (42-75); PLATELET COUNT 220 X10'3 (140-440); RED BLOOD COUNT 4.03 X10'6 (4.70-6.10); RED CELL DISTRIBUTION WIDTH 13.5 % (11.5-14.5); WHITE BLOOD COUNT 10.9 X10'3 (4.5-11.0)
[2024-03-21] MEDS ORDERED: metoprolol tartrate 25mg tablet PO SCH ×2 (09:30)
[2024-03-21 09:40] LABS: ALANINE AMINOTRANSFERASE 43 U/L (12-78); ALBUMIN 3.5 G/DL (3.4-5.0); ALKALINE PHOSPHATASE 52 IU/L (46-116); AMYLASE 41 U/L (25-115); ANION GAP 11 (8-16); ASPARTATE AMINO TRANSFERASE 47 U/L (10-37); BILIRUBIN,TOTAL 1.3 MG/DL (0.1-1.0); BLOOD UREA NITROGEN 16 MG/DL (7-18); BUN/CREATININE RATIO 24.6 (10.0-20.0); CALCIUM 8.9 MG/DL (8.5-10.1); CHLORIDE 101 MMOL/L (99-107); CREATININE 0.65 MG/DL (0.60-1.10); GLUCOSE 107 MG/DL (70-104); LIPASE 27 U/L (16-77); POTASSIUM 3.8 MMOL/L (3.5-5.1); SODIUM 135 MMOL/L (135-145); TOTAL CARBON DIOXIDE 22.9 MMOL/L (24-32); TOTAL PROTEIN 7.1 G/DL (6.4-8.2); eCRCL 110 ML/MIN; eGFR > 90 ML/MIN
[2024-03-21] MEDS ORDERED: NOR5T PO (09:53)
[2024-03-21] MEDS ORDERED: ASPI-1071 PO (09:53)
[2024-03-21] MEDS ORDERED: LOP25T PO (09:53)
[2024-03-21] MEDS ORDERED: ATOR20TA66 PO (09:53)
[2024-03-21 10:37] VITALS: BP 116/74; PULSE 60; RESP 18; TEMP 97; O2SAT 99
[2024-03-21] MEDS ORDERED: TICA90TA PO (10:41)
[2024-03-21] MEDS ORDERED: APIX5TAB3 PO (10:41)
[2024-03-23] MEDS ORDERED: thiamine 100mg tablet PO SCH (08:00)
== END 2024-03-21 10:50 | disposition home or self-care (01) | DRG 321 ==
LOC: ER 08:05 → ED HOLD 10:36 → PCU 3S 15:40
PROVIDERS: ADMIT Internal Medicine; ATTEND Internal Medicine
PROC: 5A12012 Performance of Cardiac Output, Single, Manual (ICD-10-PCS; principal; 2024-03-19)
PROC: 027034Z Dilation of Coronary Artery, One Artery with Drug-eluting Intraluminal Device, Percutaneous Approach (ICD-10-PCS; 2024-03-20)
PROC: 4A023N7 Measurement of Cardiac Sampling and Pressure, Left Heart, Percutaneous Approach (ICD-10-PCS; 2024-03-20)
PROC: B2111ZZ Fluoroscopy of Multiple Coronary Arteries using Low Osmolar Contrast (ICD-10-PCS; 2024-03-20)
DX: I21.4 Non-ST elevation (NSTEMI) myocardial infarction (principal); I46.2 Cardiac arrest due to underlying cardiac condition; I49.01 Ventricular fibrillation; E87.20 Acidosis, unspecified; E78.00 Pure hypercholesterolemia, unspecified; F17.210 Nicotine dependence, cigarettes, uncomplicated; F41.9 Anxiety disorder, unspecified; I10 Essential (primary) hypertension; D50.9 Iron deficiency anemia, unspecified; I48.0 Paroxysmal atrial fibrillation; Z79.82 Long term (current) use of aspirin; Z90.49 Acquired absence of other specified parts of digestive tract
CPT/HCPCS: 93306; 93454; C9600; 36415; 36600; 71045; 71275; 80048; 80053; 80061; 80305; 81001; 82150; 82803; 82948; 83036; 83605; 83690; 83735; 83880; 84443; 84484; 85007; 85008; 85018; 85025; 85610; 85730; 87081; 93005; 99152; 99153; A4615; C1725; C1751; C1769; C1874; C1894; G0378; J0282; J1644; J2250; J2270; J3010; J3490; J7030; Q9967

== ENCOUNTER 2024-07-23 06:17 | Observation (INO) | payer BC ==
[~2024-07-23] VITALS: Ht 175.3 cm; Wt 85.0 kg
[~2024-07-23 06:17] MED LIST changes: +APIX5TAB3 PO; +ASPI-1071 PO; +ATOR20TA66 PO; -LISI10TA27 PO; +LISI20TA28 PO; +LOP25T PO; -METO25TA6 PO; -PROP60CA37 PO; -ROSU10TA2 PO; +TICA90TA PO
[2024-07-23 06:43] LABS: BASOPHILS # (AUTO) 0.1 X10'3 (0-0.2); EOSINOPHILS % (AUTO) 2.8 % (0-6); MONOCYTES # (AUTO) 1.3 X10'3 (0-0.9); NEUTROPHILS # (AUTO) 4.5 X10'3 (1.8-7.7); RED CELL DISTRIBUTION WIDTH 13.2 % (11.5-14.5); WHITE BLOOD COUNT 12.4 X10'3 (4.5-11.0)
[2024-07-23 06:45] LABS: BASOPHILS % (AUTO) 0.8 % (0-1); EOSINOPHILS # (AUTO) 0.3 X10'3 (0-0.9); HEMATOCRIT 43.6 % (42.0-52.0); LYMPHOCYTES # (AUTO) 6.2 X10'3 (1.1-4.8); LYMPHOCYTES % (AUTO) 50.2 % (21-51); MEAN CORPUSCULAR HEMOGLOBIN 33.4 PG (27.0-31.0); MEAN CORPUSCULAR HGB CONC 34.4 g/dL (33.0-36.5); MEAN CORPUSCULAR VOLUME 97.3 FL (78-98); MONOCYTES % (AUTO) 10.1 % (2-12); NEUTROPHILS % (AUTO) 36.1 % (42-75); PLATELET COUNT 350 X10'3 (140-440); RED BLOOD COUNT 4.48 X10'6 (4.70-6.10)
[2024-07-23 06:52] LABS: ALANINE AMINOTRANSFERASE 48 U/L (12-78); ALBUMIN 3.6 G/DL (3.4-5.0); ALBUMIN/GLOBULIN RATIO 0.9 (1.1-1.5); ALKALINE PHOSPHATASE 81 IU/L (46-116); ANION GAP 6 (8-16); ASPARTATE AMINO TRANSFERASE 34 U/L (10-37); BILIRUBIN,TOTAL 0.6 MG/DL (0.1-1.0); BLOOD UREA NITROGEN 15 MG/DL (7-18); BUN/CREATININE RATIO 20.3 (10.0-20.0); CALCIUM 8.8 MG/DL (8.5-10.1); CHLORIDE 103 MMOL/L (99-107); CREATININE 0.74 MG/DL (0.60-1.10); GLUCOSE 139 MG/DL (70-104); POTASSIUM 4.1 MMOL/L (3.5-5.1); SODIUM 134 MMOL/L (135-145); TOTAL CARBON DIOXIDE 24.8 MMOL/L (24-32); TOTAL PROTEIN 7.4 G/DL (6.4-8.2); eCRCL 104 ML/MIN; eGFR > 90 ML/MIN
[2024-07-23 07:01] LABS: MAGNESIUM 1.9 MG/DL (1.5-2.4); PRO BRAIN NATRIURETIC PEPTIDE 236 PG/ML (0-125)
[2024-07-23] MEDS: LORazepam 1 MG tablet PO ONE (07:27)
[2024-07-23] MEDS: magnesium sulf-water 2g/50mL 50 ML IV ONE (07:27)
[2024-07-23] MEDS ORDERED: normal saline 1000ml 1,000 ML IV SCH (07:45)
[2024-07-23] MEDS: normal saline 500ml IV soln 500 ML IV ONE (07:59)
[2024-07-23 08:01] LABS: ETHANOL < 10 MG/DL (<10)
[2024-07-23 08:02] LABS: PLATELET ESTIMATE NORMAL; SMUDGE CELLS FEW; TOTAL CELLS COUNTED 100
[2024-07-23] MEDS: normal saline 1000ml 1,000 ML IV ONE (08:54)
[2024-07-23] MEDS ORDERED: magnesium sulf-water 2g/50mL 50 ML IV PRN ×2 (10:05→14:15)
[2024-07-23] MEDS ORDERED: morphine 2 MG/ML inj. syringe IV PRN ×2 (10:05)
[2024-07-23] MEDS ORDERED: ondansetron/PF 4mg/2ml inj IV PRN ×2 (10:05→14:15)
[2024-07-23] MEDS ORDERED: potassium Cl 20 mEq SR tablet PO PRN ×4 (10:05→14:15)
[2024-07-23] MEDS ORDERED: magnesium sulf-water 4G/100mL 100 ML IV PRN ×2 (10:05→14:15)
[2024-07-23] MEDS ORDERED: magnesium Cl slow-release 64mg tablet PO PRN ×2 (10:05→14:15)
[2024-07-23] MEDS ORDERED: mag hydrox/Alum hydrox/simeth 30ml oral suspension PO PRN ×2 (10:05→14:15)
[2024-07-23] MEDS ORDERED: magnesium hydroxide 30ml (MOM) UD suspension PO PRN ×2 (10:05→14:15)
[2024-07-23] MEDS ORDERED: acetaminophen 325mg tablet PO PRN ×3 (10:05→14:15)
[2024-07-23] MEDS ORDERED: potassium Cl 40MEQ/1/2NS 520ml 520 ML IV PRN ×2 (10:05→14:15)
[2024-07-23] MEDS ORDERED: CHOL200074 PO (12:30)
[2024-07-23] MEDS ORDERED: ROSU20TA98 PO (12:30)
[2024-07-23] MEDS ORDERED: CARV3.123 PO (12:30)
[2024-07-23] MEDS ORDERED: LORA-268 PO (12:30)
[2024-07-23] MEDS ORDERED: [UNRECOGNIZED DRUG - CODE] PO (12:35)
[2024-07-23 14:58] LABS: THYROID STIMULATING HORMONE 1.93 ulU/ml (0.34-4.50)
[2024-07-23] MEDS ORDERED: HYDROcodone/acetaminophen 5mg/325mg tablet PO PRN (17:40)
[2024-07-23] MEDS: furosemide 20 MG/2 ML vial IV SCH (17:50)
[2024-07-23] MEDS: HYDROcodone/acetaminophen 10/325mg tab PO PRN (17:51)
[2024-07-23] MEDS: K and/or MAG REPLACEMENT MC SCH (20:00)
[2024-07-23] MEDS ORDERED: docusate sod 100mg capsule PO SCH (20:00)
[2024-07-23] MEDS ORDERED: K and/or MAG REPLACEMENT MC SCH (20:00)
[2024-07-23] MEDS: docusate sod 100mg capsule PO SCH (20:00)
[2024-07-23] MEDS: apixaban 5mg tablet PO SCH (20:18)
[2024-07-23] MEDS: ticagrelor 90mg tablet PO SCH (20:18)
[2024-07-24 02:28] LABS: BASOPHILS % (AUTO) 0.3 % (0-1); EOSINOPHILS # (AUTO) 0.2 X10'3 (0-0.9); EOSINOPHILS % (AUTO) 1.6 % (0-6); HEMATOCRIT 41.8 % (42.0-52.0); HEMOGLOBIN 14.4 g/dl (14.0-17.9); LYMPHOCYTES # (AUTO) 3.1 X10'3 (1.1-4.8); MEAN CORPUSCULAR HEMOGLOBIN 33.8 PG (27.0-31.0); MEAN CORPUSCULAR HGB CONC 34.3 g/dL (33.0-36.5); MEAN CORPUSCULAR VOLUME 98.5 FL (78-98); MONOCYTES # (AUTO) 1.3 X10'3 (0-0.9); NEUTROPHILS # (AUTO) 6.1 X10'3 (1.8-7.7); NEUTROPHILS % (AUTO) 57.1 % (42-75); PLATELET COUNT 294 X10'3 (140-440); RED BLOOD COUNT 4.24 X10'6 (4.70-6.10); RED CELL DISTRIBUTION WIDTH 13.3 % (11.5-14.5); WHITE BLOOD COUNT 10.7 X10'3 (4.5-11.0)
[2024-07-24 02:40] LABS: ALBUMIN 3.4 G/DL (3.4-5.0); ANION GAP 7 (8-16); BLOOD UREA NITROGEN 13 MG/DL (7-18); BUN/CREATININE RATIO 18.1 (10.0-20.0); CALCIUM 8.9 MG/DL (8.5-10.1); CHLORIDE 104 MMOL/L (99-107); CREATININE 0.72 MG/DL (0.60-1.10); GLUCOSE 103 MG/DL (70-104); POTASSIUM 3.8 MMOL/L (3.5-5.1); SODIUM 137 MMOL/L (135-145); TOTAL CARBON DIOXIDE 26.5 MMOL/L (24-32); eCRCL 106 ML/MIN; eGFR > 90 ML/MIN
[2024-07-24] MEDS: LORazepam 1 MG tablet PO ONE (06:33)
[2024-07-24] MEDS: atorvastatin 20mg tablet PO SCH (09:07)
[2024-07-24] MEDS: cholecalciferol (vitamin D3) 1,000 unit (25mcg) tablet PO SCH (09:07)
[2024-07-24] MEDS: cyanocobalamin 500mcg tablet PO SCH (09:27)
[2024-07-24] MEDS ORDERED: FURO-150 PO (11:07)
[2024-07-24 11:51] VITALS: BP 118/79; PULSE 70; RESP 16; TEMP 97.9; O2SAT 98
== END 2024-07-24 11:23 | disposition home or self-care (01) ==
LOC: ER 06:17 → ED HOLD 10:11
PROVIDERS: ADMIT Internal Medicine; ATTEND Internal Medicine
DX: I48.91 Unspecified atrial fibrillation (principal); R07.89 Other chest pain; R42 Dizziness and giddiness; R53.1 Weakness; E78.00 Pure hypercholesterolemia, unspecified; I10 Essential (primary) hypertension; I25.10 Atherosclerotic heart disease of native coronary artery without angina pectoris; F17.210 Nicotine dependence, cigarettes, uncomplicated; Z90.49 Acquired absence of other specified parts of digestive tract; R00.1 Bradycardia, unspecified; F41.9 Anxiety disorder, unspecified; Z79.899 Other long term (current) drug therapy; Z98.890 Other specified postprocedural states; Z79.01 Long term (current) use of anticoagulants
CPT/HCPCS: 36415; 71045; 80048; 80053; 80320; 83735; 83880; 84443; 84484; 85025; 93005; 93306; 96365; 96366; 96375; 96376; 99285; G0378; J1940; J7030; J7040; 85007

== ENCOUNTER 2025-01-11 17:18 | Emergency (ER) | payer BC ==
[~2025-01-11] VITALS: Ht 170.2 cm; Wt 92.2 kg
[~2025-01-11 17:18] MED LIST changes: -ASPI-1071 PO; -ATOR20TA66 PO; +CHOL200074 PO; +FURO-150 PO; -LISI20TA28 PO; -LOP25T PO; +LORA-268 PO; -NOR5T PO; +ROSU20TA98 PO; +[UNRECOGNIZED DRUG - CODE] PO
[2025-01-11 17:29] VITALS: BP 159/85; PULSE 70; RESP 18; TEMP 98.3; O2SAT 97
--- NOTE | 2025-01-11 17:43 | Physician Documentation ---
History of Present Illness ~ Chief Complaint: Mouth Pain Stated Complaint: BLEEDING FROM TONGUE Time Seen by MD: 17:36 Primary Medical Doctor: DR. watson HPI 64-year-old male presents to the ED with a complaint of bleeding from his toungue. As he is on two blood thinners from a previous cardiac event. States he also does not think he bit his tongue at all. This has been going on for about 1 hour and a half Day of Onset: Jan 11, 2025 Medication Reconciliation Allergies: Coded Allergies: No Known Allergies (Unverified , 01/11/25) Scheduled Apixaban (Eliquis), 5 MG PO BID Cholecalciferol (Vitamin D3) (Vitamin D3), 1 CAP PO DAILY, (Reported) Cyanocobalamin (Vitamin B-12) (Vitamin B-12), 1 CAP PO DAILY, (Reported) Furosemide (Lasix), 20 MG PO DAILY Rosuvastatin Calcium (Rosuvastatin Calcium), 1 TAB PO DAILY, (Reported) Ticagrelor (Brilinta), 90 MG PO BID Scheduled PRN Lorazepam (Ativan), 1 TAB PO HS PRN for for anxiety/agitation, (Reported) Past Medical History Past Medical History: High Cholesterol, Hypertension, Anxiety Past Surgical History: appendectomy, orthopedic surgeries Patient History: FH: brain aneurysm (Father) Alcohol Use: Occasionally Drug Use: none Lives with: Spouse Lives In: Home Occupation: employed Physical Exam Vital Signs: Temperature: 98.3, Source: Temporal, Heart Rate: 70, Respiratory Rate: 18, BP: 159/85, Pulse Oximetry: 97, Weight: 92.200 Oxygen Flow Rate: 0 Physical Exam General: Alert, no apparent distress. HEENT: PERRL, EOMI, no injection, moist mucous membranes. Poor dentition bleeding coming from the molars in the upper right region Neck: Full range of motion. Respiratory: Lungs clear, no respiratory distress. Neurologic: Oriented x4. Psychiatric: Normal mood and affect. Skin: Normal color, warm and dry. No edema, no ecchymosis. Progress Results/Orders Results/Orders Vital Signs 01/11/25 17:29 Temp 98.3 Pulse 70 Resp 18 B/P (MAP) 159/85 Pulse Ox 97 O2 Flow Rate 0 Medical Decision Making Findings Surgicel was used to stop bleeding the patient's mouth. Small abrasion likely resulted in mouth bleeding secondary to patient taking two prescribed blood thinners.. Advised the patient that this and discharged him after bleeding stopped.. Gave him additional Surgicel case it returns Tooth Diff. Dx: Considerations: Include: Alveolar fracture, Aveolar osteitis, ANUG, Facial cellulitis, Periapical abscess, Periodontal abscess, Post- extraction bleeding, Pulpitis, Trigeminal neuralgia, Tooth-avulsion, Tooth-eru ption, Tooth-fracture, Tooth-subluxation, Other Departure Disposition: 01 HOME / SELF CARE / HOMELESS Impression: Primary Impression: Tooth ache Additional Impression: Tooth caries Condition: Stable Discharge Instructions: Mouth Injury, Generic Referrals: NO PRIMARY CARE PROVIDER (PCP) Education Educated: Patient Educated regarding: diagnosis Signature Scribe Signature: f Attestation: Scribed for Johan Hess Medical Front Desk Coordinator by Johan Clemente NP . 01/11/25 18:48 JOHAN HESS NP Jan 11, 2025 17:43
== END 2025-01-11 19:05 | disposition home or self-care (01) ==
LOC: ER 17:19
DX: K02.9 Dental caries, unspecified (principal); K08.89 Other specified disorders of teeth and supporting structures; F41.9 Anxiety disorder, unspecified; I10 Essential (primary) hypertension; E78.00 Pure hypercholesterolemia, unspecified; Z90.49 Acquired absence of other specified parts of digestive tract; Z79.899 Other long term (current) drug therapy; Z72.89 Other problems related to lifestyle
CPT/HCPCS: 99282; A6449